=== PATIENT | female | born 1995 | race Two or more races ===

== ENCOUNTER 2017-09-23 21:00 | Emergency (ER) | payer OTHER ==
[~2017-09-23] VITALS: Ht 157.5 cm; Wt 43.1 kg
[2017-09-23] MEDS ORDERED: PREDNISONE20 MG ORAL (21:49)
[2017-09-23] MEDS ORDERED: ATARAX25 MG ORAL (21:49)
[2017-09-23 21:53] VITALS: BP 120/79
--- NOTE | 2017-09-23 21:53 | Emergency Room Report ---
History of Present Illness General Chief Complaint: Allergic Reaction Source: Patient Present Illness HPI The patient is a 22-year-old female presented after increased skin rash. Patient gradual onset of symptoms. Patient reported having diffuse skin itchiness. She denied any fever. She denied prior history. She states that she is deaf was not . She had had not been vomiting. She denied any shortness of breath. Patient gradual onset of symptoms. Allergies: Coded Allergies: No Known Allergies (Unverified , 09/23/17) Patient History Past Medical History: see triage record Last Menstrual Period: aug 2017 Now: No Reviewed Nursing Documentation: PMH: Agreed, PSxH: Agreed Nursing Documentation-PMH Past Medical History: No Stated History Review of Systems All Other Systems: negative except mentioned in HPI Physical Exam Vital Signs Date Time Temp Pulse Resp B/P (MAP) Pulse Ox O2 Delivery O2 Flow Rate FiO2 09/23/17 21:27 98.4 79 16 120/79 99 Room Air General Appearance: well appearing, no apparent distress, alert, GCS 15 Head: normocephalic, atraumatic ENT: hearing grossly normal, normal voice Neck: full range of motion, supple Respiratory: lungs clear, normal breath sounds, no respiratory distress, speaking full sentences Cardiovascular #1: normal inspection, normal peripheral pulses, regular rate, rhythm Gastrointestinal: normal inspection, normal bowel sounds, non tender, soft Musculoskeletal: normal inspection, digits/nails normal, no calf tenderness Neurologic: normal inspection, alert, oriented x3, normal gait Psychiatric: mood/affect normal Skin: other - generalized maculopapular rash Medical Decision Making Diagnostic Impression: Primary Impression: Skin rash ER Course Patient presented for skin rash. Differential diagnosis included was not limited to Diamond-Benjie syndrome, pityriasis rosea , urticaria, erythema multiforme, contact dermatitis. The patient noted have severe itching and patient was given prescription for Atarax as well as prednisone. Patient's benign exam and does not appear to require any further imaging or laboratory testing at this time. The patient was advised followup with her primary care physician for reexamination in the next few days. Last Vital Signs Date Time Temp Pulse Resp B/P (MAP) Pulse Ox O2 Delivery O2 Flow Rate FiO2 09/23/17 21:27 98.4 79 16 120/79 99 Room Air Status: improved Disposition: HOME, SELF-CARE Scripts Prednisone* (PREDNISONE*) 20 Mg Tablet 40 MG ORAL DAILY, #10 TAB Prov: Garo Barnett 09/23/17 Hydroxyzine HCl (Hydroxyzine HCl) 25 Mg Tablet 25 MG ORAL FOUR TIMES A DAY, #30 TAB Prov: Garo Barnett 09/23/17 Patient Instructions: Garo Cheung Sep 23, 2017 21:53
[2017-09-23 22:01] VITALS: BP 120/79
== END 2017-09-23 22:01 | disposition home or self-care (01) ==
LOC: EMR 21:56
DX: R21 Rash and other nonspecific skin eruption (principal); T78.40XA Allergy, unspecified, initial encounter; X58.XXXA Exposure to other specified factors, initial encounter
CPT/HCPCS: 81025; 99283